=== PATIENT | female | born 1990 | race Caucasian/White ===

== ENCOUNTER 2017-02-17 01:36 | Emergency (ER) ==
[2017-02-17 02:05] LABS: URINE SOURCE CLEAN CATCH
[2017-02-17 02:05] LABS: MANUAL DIFF NEEDED? NO
--- NOTE | 2017-02-17 02:05 | PROVIDER DOCUMENTATION ---
HPI-Female /OB/Breast - General Chief Complaint: Female Stated Complaint: 5WKS PREG-CRAMPING Time Seen by Provider: 02/17/17 01:39 Source: reports: patient Allergies/Adverse Reactions: Patient Allergies Allergy/AdvReac Type Severity Reaction Status Date / Time No Known Allergies Allergy Verified 02/17/17 01:47 Home Medications: Home Medication List Medication Instructions Recorded Confirmed Last Taken Type Vit No.78/Iron/FA 1 tab PO DAILY 02/17/17 02/17/17 Unknown History [Prenatabs FA Tablet] - History of Present Illness-Female /OB Nature of Presenting Problem: 26 year old female 5 wks presents to the ER with complaint of cramping x 3 days. Pt states she was awaken with cramping. States the pain is mostly in the RLQ. Denies bleeding. Location of complaint: reports: RLQ Quality of Pain: reports: aching Onset/Duration: reports: 3 days ago Timing: reports: still present Vaginal Symptoms: denies: abnormal bleeding Related Symptoms: reports: pelvic pain, abdominal pain - LMP/ History Menstrual Status: currently Review of Systems - Adult - REVIEW OF SYSTEMS - ADULT Constitutional: denies: chills, fever Eyes: reports: no symptoms reported Ears, Nose, Mouth & Throat: reports: no symptoms reported Cardiovascular: reports: no symptoms reported Respiratory: reports: no symptoms reported Gastrointestinal: reports: abdominal pain, nausea Genitourinary: reports: no symptoms reported Musculoskeletal: reports: no symptoms reported Integumentary: reports: no symptoms reported Neurological: reports: no symptoms reported Psychiatric: reports: no symptoms reported Endocrine: reports: no symptoms reported Hematologic/Lymphatic: reports: no symptoms reported Allergic/Immunologic: reports: no symptoms reported All Other Systems: Reviewed and Negative Past History - Adult - PAST MEDICAL HISTORY-ADULT Review of Records: reports: Nursing Assessment Review, Medications Reviewed - IMMUNIZATION STATUS Childhood Immunizations: See Nurse Assessment Flu Vaccine: See Nurse Assessment Physical Exam-General - CONSTITUTIONAL General Appearance: alert, no apparent distress - EYES Eyes: PERRL/EOMI, pink conjunctivae - HEAD, EARS, NOSE, MOUTH & THROAT HENMT: moist mucous membranes, normal ENT inspection - NECK Neck: non-tender, supple - RESPIRATORY Respiratory: lungs clear, normal breath sounds - CARDIOVASCULAR Cardiovascular: normal peripheral pulses, regular rate, rhythm - GASTROINTESTINAL (ABDOMEN) Abdominal Exam: negative: rebound, Mills's sign, Rovsing's sign - MUSCULOSKELETAL Back Exam: no CVA tenderness, no vertebral tenderness Extremity: normal gait, normal inspection - SKIN Integumentary: normal color, warm/dry - NEUROLOGIC Neurologic: grossly normal, no motor/sensory deficits - PSYCHIATRIC Psych/Mental Status: normal mood/affect, normal thought content, normal thought process, oriented x 3 Attestation - Scribe Verification/Attestation Scribe:: Danielle Lane Acting as Scribe for:: Gerry Alicia Scribe documention review:: This chart was documented by a scribe and accurately reflects the service the provider performed and the decisions made by the provider.
[2017-02-17 02:20] LABS: BASO% 0.3 % (0.0-0.8); EOS# 0.16 X1000 (0.0-0.7); EOS% 1.4 % (0.0-10.0); HEMATOCRIT 37.4 % (37.0-47.0); HEMOGLOBIN 12.2 g/dL (12.0-16.0); IMM GRAN# 0.03 X1000 (0.0-0.04); IMM GRAN% 0.3 % (0.0-0.5); LYMPH# 3.04 X1000 (1.2-3.4); LYMPH% 26.3 % (20.5-51.1); MCHC 32.6 g/dL (33-37); MONO# 0.79 X1000 (0.11-0.59); MONO% 6.8 % (1.7-9.3); MPV 9.9 FL (7.4-10.4); NEUT% 64.9 % (42.2-75.2); PLT 386 X1000 (130-400); RBC 4.35 XMIL (4.2-5.4)
[2017-02-17 02:26] LABS: BILIRUBIN URINE NEGATIVE (NEGATIVE); BLOOD URINE 1+ (NEGATIVE); CLARITY SL. CLOUDY (CLEAR); COLOR YELLOW; GLUCOSE URINE NEGATIVE (NEGATIVE); LEUKOCYTES URINE 1+ (NEGATIVE); NITRITE URINE NEGATIVE (NEGATIVE); PROTEIN URINE NEGATIVE (NEGATIVE); SP GRAVITY URINE 1.025; UROBILINOGEN URINE NORMAL
[2017-02-17 02:30] LABS: AGAP 10; ALBUMIN 3.9 g/dL (3.5-5.0); ALKALINE PHOSPHATASE 110 U/L (32-104); BUN 11 mg/dL (8-22); CALCIUM 8.9 mg/dL (8.8-10.2); CHLORIDE 100 mmol/L (98-107); COSMO 270; GOT 17 U/L (10-30); GPT 22 U/L (10-36); POTASSIUM 3.4 mmol/L (3.5-5.1); SODIUM 135 mmol/L (136-145); TCO2 25 mmol/L (25-35)
[2017-02-17 02:30] LABS: URINE CULTURE PL NEEDED? YES; URINE EPITHELIAL CELLS <10 /HPF (<10); URINE RBC <10 /HPF (<10)
[2017-02-17 02:31] LABS: URINE WBC <10 /HPF (<10)
[2017-02-17 03:39] VITALS: BP 123/79
--- NOTE | 2017-02-17 11:30 | Diag Imaging Result Document ---
PROCEDURE NAME: US OBS COMPLETE < 14 WKS - 02/17/2017 OBSTETRIC ULTRASOUND: COMPARISON: None available. FINDINGS: There is an early intrauterine gestation. A gestational sac and yolk sac are identified. No definite pole can be identified at this early stage. There is no evidence of subchorionic hemorrhage. The estimated gestational age by ultrasound is 6 weeks, 0 days. There is a small 2 cm right ovarian cyst that appears to represent a corpus luteum cyst. No solid adnexal masses are identified. No free fluid is identified. IMPRESSION: 1. Early intrauterine gestation with a gestational sac and yolk sac identified. No definite pole can be identified at this time. Continued surveillance is recommended in 7-14 days to assure normal development. 2. Right ovarian cyst, likely a corpus luteum cyst.
== END 2017-02-17 03:40 | disposition home or self-care (01) ==
LOC: EDBD 01:36 → P.ED 01:36
DX: O26.891 Other specified pregnancy related conditions, first trimester (principal); R10.31 Right lower quadrant pain; R10.2 Pelvic and perineal pain; Z3A.01 Less than 8 weeks gestation of pregnancy; O21.0 Mild hyperemesis gravidarum
CPT/HCPCS: 76801; 80053; 81001; 84702; 85025; 87088